=== PATIENT | female | born 1990 | race Caucasian/White ===

== ENCOUNTER 2018-03-20 10:11 | Emergency (ER) | payer SELFPAY ==
[~2018-03-20] VITALS: Ht 170.2 cm; Wt 81.6 kg
[2018-03-20 10:25] VITALS: BP_SYST 118
[2018-03-20] MEDS ORDERED: NACL 0.9% 1,000 ML IV ONE (11:26)
[2018-03-20] MEDS ORDERED: MORPHINE 4 MG/ML INJ. SYRINGE IVP ONE (11:30)
[2018-03-20] MEDS ORDERED: ONDANSETRON HCL 4 MG/2 ML VIAL IVP ONE (11:30)
[2018-03-20 11:53] LABS: HEMATOCRIT 45.8 % (36-48); HEMOGLOBIN 15.7 g/dL (12.0-16.0); MEAN CORPUSCULAR HEMOGLOBIN 31 pg (27-31); MEAN CORPUSCULAR HGB CONC 34 % (32-36); MEAN CORPUSCULAR VOLUME 90 fL (79.0-98.0); PLATELET COUNT (AUTO) 347 K/uL (130-430); RED BLOOD CELL COUNT(AUTO) 5.07 MIL/uL (4.2-6.2); RED CELL DISTRIBUTION WIDTH 12.4 % (9.0-15.0); WHITE BLOOD COUNT (AUTO) 10.5 K/uL (4.8-10.8)
[2018-03-20 11:54] LABS: BASOPHILS # (AUTO) 0.1 K/uL (0.0-0.2); BASOPHILS % (AUTO) 0.5 % (0.0-2.0); EOSINOPHILS % (AUTO) 0.3 % (0.0-4.0); LYMPHOCYTES # (AUTO) 0.8 K/uL (1.0-5.5); LYMPHOCYTES % (AUTO) 8.1 % (20.5-51.5); MONOCYTES # (AUTO) 0.2 K/uL (0.0-1.0); MONOCYTES % (AUTO) 2.3 % (1.7-9.3); NEUTROPHILS # (AUTO) 9.4 K/uL (1.8-7.7); NEUTROPHILS % (AUTO) 88.8 % (40.0-70.0)
[2018-03-20 12:03] LABS: BILIRUBIN,URINE NEGATIVE (NEGATIVE); CLARITY/URINE CLEAR (CLEAR); COLOR,URINE YELLOW (YELLOW); GLUCOSE,URINE NEGATIVE (NEGATIVE); KETONES,URINE NEGATIVE (NEGATIVE); PROTEIN URINE NEGATIVE (NEGATIVE)
[2018-03-20 12:04] LABS: BLOOD, URINE TRACE (NEGATIVE); LEUKOCYTE ESTERASE ,URINE TRACE (NEGATIVE); NITRITE, URINE NEGATIVE (NEGATIVE); UROBILINOGEN,URINE 0.2 (0.2-1.0)
[2018-03-20 12:06] LABS: POTASSIUM 4.3 mmol/L (3.5-5.1)
[2018-03-20 12:07] LABS: CALCIUM 9.1 mg/dL (8.4-11.0); CREATININE 0.61 mg/dL (0.55-1.30); TOTAL BILIRUBIN 0.3 mg/dL (0.0-1.0)
[2018-03-20 12:08] LABS: PROTHROMBIN TIME 9.3 SECS (9.5-12.5)
[2018-03-20 12:09] LABS: INR 0.9 (0.8-1.2)
[2018-03-20 12:17] LABS: BACTERIA,URINE MODERATE /HPF (None Seen); MUCUS,URINE 1+ /LPF (None Seen); YEAST,URINE None Seen /HPF (None Seen)
[2018-03-20] MEDS ORDERED: ONDANSETRON 4 MG ODT TAB PO ONE (15:00)
[2018-03-20 15:17] VITALS: BP_SYST 116
== END 2018-03-20 15:17 | disposition home or self-care (01) ==
LOC: SED 10:11
DX: K52.9 Noninfective gastroenteritis and colitis, unspecified (principal); E86.0 Dehydration; R53.1 Weakness
CPT/HCPCS: 36415; 80053; 81000; 81025; 83690; 85025; 85610; 87086; 96361; 96374; 96375; 99283; J2270; J2405; J7030; Q0162